=== PATIENT | male | born 1960 | race Caucasian/White ===

== ENCOUNTER 2023-01-04 18:38 | Emergency (ER) | payer BC ==
[~2023-01-04] VITALS: Ht 188 cm; Wt 106.0 kg
[2023-01-04 18:51] VITALS: BP 143/104; PULSE 83; RESP 20; TEMP 97.2; O2SAT 99
[2023-01-04] MEDS ORDERED: ONDANSETRON HCL 4MG/2ML INJ IV ONE (19:15)
[2023-01-04] MEDS ORDERED: MECLIZINE 25MG TABLET PO ONE (19:15)
[2023-01-04] MEDS ORDERED: DIAZEPAM 5 MG/ML 2ML CPJ IV ONE (19:15)
[2023-01-04] MEDS ORDERED: SODIUM CHLORIDE 0.9% 1,000 ML IV ONE (19:15)
[2023-01-04 20:00] LABS: BASOPHILS % 0.5 % (0.0-2.0); EOSINOPHILS % 2.2 % (0.0-5.0); HEMOGLOBIN. 15.2 g/dL (14.0-18.0); LYMPHOCYTES % 20.4 % (20.0-50.0); MEAN CORPUSCULAR HEMOGLOBIN 30.9 pg (28.0-32.0); MEAN CORPUSCULAR HGB CONC 34.5 g/dL (31.0-37.0); MEAN CORPUSCULAR VOLUME 89.6 fL (80.0-94.0); MONOCYTES % 7.8 % (2.0-8.0); NEUTROPHILS % 69.1 % (40.0-76.0); PLATELET 208 x1000/uL (130-400); RED BLOOD CELL COUNT 4.91 mill/uL (4.7-6.1); RED CELL DISTRIBUTION WIDTH 13.3 % (11.6-14.6); WHITE BLOOD COUNT 8.2 x1000/uL (4.5-11.0)
[2023-01-04 20:05] LABS: CHLORIDE 109 mEq/L (98-107); INDEX HEMOLYSI 1 (1-3); INDEX ICTERIC 1 (1-4); INDEX LIPEMIC 1 (1-3); POTASSIUM 3.8 mEq/L (3.5-5.1); SODIUM 140 mEq/L (136-145)
[2023-01-04 20:16] LABS: ALANINE AMINOTRANSFERASE 41 IU/L (13-61); ALBUMIN 3.8 g/dL (3.4-5.0); ASPARTATE AMINOTRANSFERASE 36 IU/L (15-37); BILIRUBIN TOTAL 0.9 mg/dL (0.1-1.0); CALCIUM 8.8 mg/dL (8.5-10.1); CARBON DIOXIDE 25 mEq/L (21-32); GLUCOSE 125 mg/dL (70-105); NT PRO B-TYPE NATRIURETIC PEP 113 pg/mL (5-125); UREA NITROGEN BLOOD 14 mg/dL (7-21)
[2023-01-04] MEDS ORDERED: DIAZEPAM 5 MG/ML 2ML CPJ IV NR (21:30)
[2023-01-04] MEDS: MECLIZINE 12.5MG TABLET PO NR ×2 (21:30→21:31)
[2023-01-04] MEDS ORDERED: MECL-299 PO (21:53)
[2023-01-04] MEDS ORDERED: ONDA4TAB11 PO (21:53)
== END 2023-01-04 22:05 | disposition home or self-care (01) ==
LOC: ER 18:38
DX: R42 Dizziness and giddiness (principal); Z86.73 Personal history of transient ischemic attack (TIA), and cerebral infarction without residual deficits
CPT/HCPCS: 99283; 96374; 80053; 83880; 85025; 36415; J8597; J3360; J2405; J7030